=== PATIENT | female | born 1965 | race Two or more races ===

== ENCOUNTER 2017-03-14 11:34 | Inpatient (IN) | payer MEDICAID, OTHER ==
[~2017-03-14] VITALS: Ht 172.7 cm; Wt 69.9 kg
--- NOTE | 2017-03-14 11:34 | NUR ---
Pt bib family c/o left facial numbness, left sided weakness, last known well was yesterday 730am. Placed on monitor. VSS. Awaiting md order
--- NOTE | 2017-03-14 11:56 | NUR ---
lac #18 iv access. blood sample collected sent to lab
--- NOTE | 2017-03-14 11:59 | NUR ---
CHARGE NURSE ON THE PHONE WITH NURSING STEEPING PRESS OPERATOR FOR TELE BED
[2017-03-14 12:00] LABS: BASOPHILS # (AUTO) 0.1 /CMM (0.0-0.2); BASOPHILS % (AUTO) 0.9 % (0.0-2.0); EOSINOPHILS # (AUTO) 0.2 /CMM (0.0-0.7); HEMATOCRIT 46 % (33-45); HEMOGLOBIN 15.8 g/dL (11.5-14.8); LYMPHOCYTES # (AUTO) 2.2 /CMM (0.8-4.8); LYMPHOCYTES % (AUTO) 33.3 % (20.0-44.0); MEAN CORPUSCULAR HEMOGLOBIN 31 PG (26.0-33.0); MEAN CORPUSCULAR HGB CONC 34 g/dl (31.0-36.0); MEAN CORPUSCULAR VOLUME 90 fL (82-100); MONOCYTES # (AUTO) 0.4 /CMM (0.1-1.30); MONOCYTES % (AUTO) 5.5 % (2.0-12.0); NEUTROPHILS # (AUTO) 3.7 /CMM (1.8-8.9); NEUTROPHILS % (AUTO) 57.3 % (43.0-81.0); PLATELET COUNT (AUTO) 280 /CMM (150-450); RDW COEFFICIENT OF VARIATION 12.2 (11.5-15.0); RED BLOOD CELL COUNT(AUTO) 5.14 MIL/uL (4.0-5.2); WHITE BLOOD COUNT (AUTO) 6.6 K/uL (4.3-11.0)
--- NOTE | 2017-03-14 12:02 | NUR ---
urine sample collected sent to lab
[2017-03-14 12:11] LABS: CALCIUM, SERUM 9.3 mg/dL (8.5-10.1); CARBON DIOXIDE 26 mmol/L (21-32); CHLORIDE 104 mmol/L (98-107); CREATININE 0.6 mg/dL (0.6-1.3); GLUCOSE 100 mg/dL (74-106); POTASSIUM 4.2 mmol/L (3.5-5.1); SODIUM SERUM 138 mmol/L (136-145); UREA NITROGEN, BLOOD 11 mg/dL (7-18)
[2017-03-14 12:14] LABS: INR 1.01 (0.87-1.13); PROTHROMBIN TIME 10.5 SECS (9.5-12.7)
--- NOTE | 2017-03-14 12:15 | NUR ---
PT TAKEN TO CT VIA ESTHER
[2017-03-14 12:18] LABS: ALANINE AMINOTRANSFERASE 25 U/L (12-78); ALBUMIN 4.1 g/dL (3.4-5.0); ALKALINE PHOSPHATASE 122 U/L (46-116); ASPARTATE AMINOTRANSFERASE 18 U/L (15-37); BILIRUBIN,DIRECT 0.1 mg/dL (0.0-0.2); BILIRUBIN,TOTAL 0.4 mg/dL (0.2-1.0); TOTAL PROTEIN, SERUM 7.9 g/dL (6.4-8.2)
[2017-03-14 12:19] LABS: TROPONIN I < 0.017 ng/mL (0.00-0.056)
--- NOTE | 2017-03-14 12:45 | NUR ---
DR CALLOWAY CALLED AND SPOKE WITH DR SHEPHERD
[2017-03-14] MEDS ORDERED: ASPIRIN 325 MG TABLET ONE (12:46)
--- NOTE | 2017-03-14 12:53 | NUR ---
GAVE REPORT TO [facility] ROOM [address] BRODIE MCMILLAN MD.
--- NOTE | 2017-03-14 12:57 | NUR ---
TRANSFER VIA ACLS PROTOCOL
[2017-03-14] MEDS ORDERED: ASPIRIN 325 MG TABLET PO ONE (13:00)
[2017-03-14 13:10] VITALS: BP 112/78
--- NOTE | 2017-03-14 13:10 | NUR ---
RN NOTES ADMITTED A 51Y/O F FROM ER TRANSPORTED VIA STRETCHER ACCOMPANIED BY RN. PT IS AWAKE ALERT ORIENTED X4 ABLE TO COMMUNICATE NEEDS, ON RA TOLERATED WELL. VS TAKEN AND RECORDED. TELEBOX ATTACHED NOTED NSR. PT AMBULATORY, DENIES ANY MAJOR SKIN ISSUES, COUSIN AT BEDSIDE. ORIENTED PT TO UNIT AND CALL LIGHT USE. SAFETY MAINTAINED, KEPT COMFORTABLE. CALL LIGHT WITHIN REACH, WILL CONT TO MONITOR
[2017-03-14] MEDS ORDERED: LORA1TAB82 PO (13:18)
[2017-03-14] MEDS ORDERED: AMLO5TAB4 PO (13:18)
--- NOTE | 2017-03-14 13:30 | NUR ---
RN NOTES CALLED DR CALLOWAY OFFICE TO FOLLOW UP ADMISSION ORDERS, SPOKE WITH MAT LEFT A MESSAGE
[2017-03-14] MEDS ORDERED: ACETAMINOPHEN ES 500 MG TABLET PO PRN (14:00)
[2017-03-14] MEDS ORDERED: ZOLPIDEM TARTRATE 5 MG TABLET PO PRN (14:00)
[2017-03-14] MEDS ORDERED: LORAZEPAM 1 MG TABLET PO PRN (14:00)
[2017-03-14] MEDS: ENOXAPARIN SODIUM 40 MG/0.4 ML DISP.SYRIN SQ SCH (14:22)
[2017-03-14] MEDS: ATORVASTATIN 10 MG TABLET PO SCH ×2 (14:22→22:57)
[2017-03-14 15:30] LABS: MAGNESIUM 1.9 mg/dL (1.8-2.4); PHOSPHORUS 4.1 mg/dL (2.5-4.9)
[2017-03-14 15:42] LABS: THYROID STIMULATING HORMONE 1.79 uIU/mL (0.358-3.74)
[2017-03-14 16:00] VITALS: BP 109/72
--- NOTE | 2017-03-14 18:09 | NUR ---
RN NOTES RECEIVED A CALL FROM GABRIELLE FROM MRI DEPT, PER GABRIELLE PT REFUSED TO DO BRAIN MRI TODAY, THEY WERE ABLE TO DO MRI NECK AND BRAIN MRA BUT PT COULDNT TOLERATE PROCEDURE AND REQUESTS TO DO THE BRAIN MRI KO. PER GABRIELLE PT WILL BE PICKED UP AT 9 AM
--- NOTE | 2017-03-14 19:30 | NUR ---
HELP DESK SUPERVISOR INITIAL NOTE RECEIVED PT IN BED. A/O X4 AND ABLE TO MAKE NEEDS KNOWN. IV SITE INTACT AND FLUSHING WELL. ALL SAFETY MEASURES IN PLACE. CALL LIGHT WITHIN EASY REACH AT ALL TIMES. WILL CONTINUE TO MONITOR.
[2017-03-14 20:00] VITALS: BP 89/55
[2017-03-15] VITALS: BP 110/83
[2017-03-15 04:00] VITALS: BP 94/64
--- NOTE | 2017-03-15 06:50 | NUR ---
AMMONIA BOX OPERATOR CLOSING NOTE PT REMAINED STABLE DURING SHIFT. CALL LIGHT WITHIN EASY REACH AT ALL TIMES. ALL NEEDS ATTENDED TO. WILL ENDORSE TO NEXT SHIFT FOR ELIZA.
[2017-03-15 07:26] LABS: CHOLESTEROL 198 mg/dL (<200); HDL CHOLESTEROL 32 mg/dL (40-60); LDL 114 mg/dL (0-99); TRIGLYCERIDES 305 mg/dL (30-150)
--- NOTE | 2017-03-15 07:59 | NUR ---
INSPECTOR COLD WORKING NOTE PATIENT IN BED, RESTING COMFORTABLY IN BED , ON TELE MONITOR,SR NO C\O PAIN OR DISCOMFORT AT THIS TIME , ON TELE MONITOR SB 5 LT AC HL INTACT, NO S\S INFECTION NOTED, BED IN LOWEST AND LOCKED POSITION , CALL LIGHT WITHIN REACH , WILL CONT TO MONITOR CLOSELY
[2017-03-15 08:00] VITALS: BP_SYST 100; BP_SYST 116; BP_DIAS 54; BP_DIAS 80
[2017-03-15] MEDS ORDERED: Aspirin PO (08:50)
[2017-03-15] MEDS ORDERED: ATOR10TA PO (08:50)
[2017-03-15] MEDS ORDERED: AMLO5TAB2 PO (08:50)
[2017-03-15] MEDS ORDERED: AMLODIPINE BESYLATE 5 MG TABLET PO SCH ×2 (09:00)
[2017-03-15] MEDS ORDERED: ASPIRIN EC 325 MG TABLET.DR PO SCH (09:00)
--- NOTE | 2017-03-15 09:35 | NUR ---
RN NOTES RECEIVED PT UP AND WALKING IN THE ROOM. A/Ox4, ON TELE SR IN 90'S . RESPIRATION EVEN AND UNLABORED, PT GOING FOR MRI AT THIS TIME .
--- NOTE | 2017-03-15 09:38 | NUR ---
DATA COLLECTION ASSOCIATE NOTE ENDORSED CARE TO JOSSUE LEE
[2017-03-15 12:00] VITALS: BP 110/79
--- NOTE | 2017-03-15 12:00 | NUR ---
RN NOTES DR CALLOWAY NOTIFIED REGARDING BRAIN MRI RESULTS , AND PT RECOMMENDATION FOR ACUTE REHAB PLACEMENT INSTEAD OF GOING HOME .
[2017-03-15] MEDS: ENOXAPARIN SODIUM 40 MG/0.4 ML DISP.SYRIN SQ SCH (13:11)
[2017-03-15] MEDS ORDERED: GADOVERSETAMIDE 2.5 MMOL/5 ML VIAL IJ ONE (14:18)
[2017-03-15 16:00] VITALS: BP 119/88
--- NOTE | 2017-03-15 16:25 | NUR ---
RN NOTES DISCHARGE INSTRUCTION GIVEN TO PT, VERBALIZES UNDERSTANDING, NO SKIN ISSUERS NOTED, H/L DISCONTINUED, WAKER PROVIDED TO PT , HH ARRANGED BY , PT LEFT THE FLOOR AMBULATORY WITH WALKER ACCOMPANIED BY STAFF MEMBER.
[2017-03-15] MEDS ORDERED: ATORVASTATIN 10 MG TABLET PO SCH (22:00)
== END 2017-03-15 16:22 | disposition home health service (06) | DRG 65 ==
LOC: ER 11:36 → TELE1 12:53 → MEDSG1 03-15 10:50 → TELE1 03-15 11:04 → UNDODISIN 03-15 15:45
PROVIDERS: ADMIT Internal Medicine; ATTEND Internal Medicine
DX: I63.9 Cerebral infarction, unspecified (principal); G81.94 Hemiplegia, unspecified affecting left nondominant side; I10 Essential (primary) hypertension; F17.210 Nicotine dependence, cigarettes, uncomplicated; Z82.49 Family history of ischemic heart disease and other diseases of the circulatory system
CPT/HCPCS: 36415; 70450-TC; 70544-TC; 70547-TC; 70553-TC; 71010-TC; 80048-TC; 80061-TC; 80076-TC; 80305; 82962-TC; 83735-TC; 84100-TC; 84439-TC; 84443-TC; 84484-TC; 85025-TC; 85652-TC; 85730-TC; 86850-TC; 87081-TC; 93307-TC; 97001-TC; 97116-TC; 97530-TC; 97535-TC; A4606; A9579; J1650; Z7610

== ENCOUNTER 2019-10-10 10:52 | Emergency (ER) | payer OTHER ==
[~2019-10-10] VITALS: Ht 167.6 cm; Wt 73.0 kg
[~2019-10-10 10:52] MED LIST: AMLO5TAB9 PO; ATOR10TA PO; Aspirin PO; LORA-259 PO
--- NOTE | 2019-10-10 10:58 | NUR ---
CAME IN FOR NAUSEA X 2 WEEKS, OMEPRAZOLE X 2 WEEKS NOT HELPING, CAN'T WAIT FOR GI, APPOINTMENT IN 2 WEEKS, TO ER BED 4, HOOKED TO MONITOR, CHANGED TO HOSPITAL GOWN, PROVIDED W WARM BLANKET, PATIENT AOx4 , BREATHING EVEN AND UNLABORED, AWAITING MD WARE.
--- NOTE | 2019-10-10 11:19 | NUR ---
DR NEWBERRY AT BEDSIDE
[2019-10-10] MEDS ORDERED: ONDANSETRON HCL/PF 4 MG/2 ML VIAL ONE (11:38)
[2019-10-10 11:45] LABS: BASOPHILS % (AUTO) 0.9 % (0.0-2.0); EOSINOPHILS % (AUTO) 3.7 % (0.0-6.0); HEMATOCRIT 44 % (33-45); HEMOGLOBIN 14.7 g/dL (11.5-14.8); LYMPHOCYTES # (AUTO) 1.9 /CMM (0.8-4.8); MEAN CORPUSCULAR HGB CONC 34 g/dl (31.0-36.0); MEAN CORPUSCULAR VOLUME 93 fL (82-100); MONOCYTES # (AUTO) 0.4 /CMM (0.1-1.30); MONOCYTES % (AUTO) 7.4 % (2.0-12.0); PLATELET COUNT (AUTO) 273 /CMM (150-450); RED BLOOD CELL COUNT(AUTO) 4.69 MIL/uL (4.0-5.2); WHITE BLOOD COUNT (AUTO) 5.6 K/uL (4.3-11.0)
[2019-10-10] MEDS: IV NS 0.9% 1,000 ML BAG IV ONE (11:45)
[2019-10-10] MEDS: ONDANSETRON HCL/PF 4 MG/2 ML VIAL IVP ONE (11:45)
[2019-10-10 11:53] LABS: CREATININE 0.6 mg/dL (0.6-1.3); POTASSIUM 3.8 mmol/L (3.5-5.1)
[2019-10-10 11:59] LABS: ALBUMIN 3.8 g/dL (3.4-5.0); BILIRUBIN,TOTAL 0.3 mg/dL (0.2-1.0); TOTAL PROTEIN, SERUM 7.5 g/dL (6.4-8.2)
--- NOTE | 2019-10-10 12:46 | NUR ---
IV removed. Catheter intact and site benign. Pressure and 4x4 applied to site. No bleeding noted.Patient discharged to home in stable condition. Written and verbal after care instructions given. Patient verbalizes understanding of instruction.
[2019-10-10 12:48] VITALS: BP 114/81
== END 2019-10-10 12:50 | disposition home or self-care (01) ==
LOC: ER 11:01
DX: R10.13 Epigastric pain (principal); R11.0 Nausea; I10 Essential (primary) hypertension; F41.9 Anxiety disorder, unspecified; Z60.2 Problems related to living alone; Z79.899 Other long term (current) drug therapy; Z79.82 Long term (current) use of aspirin
CPT/HCPCS: 36415; 76705; 80048; 80076; 83690; 85025; 96374; 99284; J2405; J7030